=== PATIENT | female | born 1985 | race African-American/Black ===

== ENCOUNTER 2016-08-05 06:03 | Emergency (ER) | payer OTHER ==
[~2016-08-05] VITALS: Ht 172.7 cm; Wt 50.9 kg
[~2016-08-05 06:03] MED LIST: PEN-VEE K,VEET500 MG PO; ULTRAM50 MG PO; XYLOCAINE VISC100 ML MM; ZOFRAN4 MG PO
[2016-08-05 07:13] LABS: INFLUENZA A VIRAL ANTIGEN NEGATIVE; INFLUENZA B VIRAL ANTIGEN NEGATIVE
[2016-08-05] MEDS ORDERED: ZITHROMAX Z-PA250 MG PO (07:25)
[2016-08-05 07:33] VITALS: BP 111/70
== END 2016-08-05 07:34 | disposition home or self-care (01) ==
LOC: EME 06:03
PROVIDERS: Emergency Medicine
DX: J20.8 Acute bronchitis due to other specified organisms (principal); B34.9 Viral infection, unspecified
CPT/HCPCS: 71020; 87502; 99281; 99284